=== PATIENT | male | born 1965 | race Caucasian/White ===

== ENCOUNTER 2016-09-17 10:33 | Emergency (ER) | payer MEDICARE ==
[~2016-09-17] VITALS: Ht 193 cm; Wt 86.4 kg
[2016-09-17 10:35] VITALS: BP 103/69; PULSE 68; RESP 18; O2SAT 98
--- NOTE | 2016-09-17 11:08 | ED.REPORT ---
HPI-Abd Pain M 40 and Over Date of Service Sep 17, 2016 ED Provider: Nadeem Wilson MD Pt is a 50 y/o male presenting to the ED c/o dull, aching, RUQ abdominal pain with radiation to the right back onset this morning which woke him up. He has no history of similar symptoms. Pt denies N/V/D, dysuria, fever, chills. His pain is exacerbated by sitting on his right buttock and relieved by sitting on his left buttock. No abdominal surgeries. Nursing Notes Stated Complaint: RIGHT SIDE ABDOMINAL PAIN Chief Complaint: Male Abdominal Pain Nursing Notes Reviewed: Yes ([employer], [employer] not reconciled) Allergies: Coded Allergies: No Known Allergies (Unverified , 09/17/16) General Time Seen by MD: 11:00 Chief Complaint Abdominal pain Hx Obtained From: Patient Arrived By: Walk-in Sudden in Onset?: Yes Onset Occurred: 1 - 4 hours ago Symptom Duration: Since onset Progression since Onset: Unchanged Location: : RUQ Quality: Aching, Burning, Dull Radiation: : Back Severity: Current: Pain level 6 out of 10 Severity: Maximum: Pain level 9 out of 10 Similar Sx Previous: No Past Medical History Past Medical History DJD DDD PTSD Past Surgical History Denies Smoking History Current Some Day Smoker Social History Alcohol Use: Denies alcohol use Drug Use: THC (daily use, also uses Dabs) Ambulatory Status Independent Review of Systems Constitutional: Denies: Chills, Fever Respiratory: Denies: Non-productive cough, Shortness of breath GI: Reports: Abdominal pain, Denies: Diarrhea, Nausea, Vomiting Male: Denies Dysuria Complete sys rev & neg: except as marked. Physical Exam Initial Vital Signs Vital Signs (First) Date Time Temp Pulse Resp B/P Pulse Ox O2 Delivery O2 Flow Rate FiO2 09/17/16 10:35 36.3 68 18 103/69 98 Room Air Initial VS: Reviewed, Vital signs normal Head / Eyes: Atraumatic, Normocephalic, PERRL ENT: Mucous membranes moist, Conjunctiva normal, No scleral icterus Neck: Supple, Full range of motion Extremities: Vascular intact, Neuro intact, No swelling, No tenderness Skin: Warm, Dry, No cyanosis Neurologic: Alert, Oriented, Nonfocal Psychiatric: Mood/affect normal, Behavior normal, Normal thought content General/Constitutional: Awake, Alert, No acute distress, Well appearing, Cooperative, Not toxic appearing Respiratory / Chest: Atraumatic, Breath sounds NL, Breath sounds = bilat, No respiratory distress, No rales, No rhonchi, No wheezing, No retractions, No stridor, No chest tenderness, No chest wall deformity, No crepitus Cardiovascular: Heart rate NL, Regular rhythm, Heart sounds NL, No gallop, No murmurs, No rubs, Cap refill not delayed, Peripheral circulation NL Abdomen: Atraumatic, Soft, No guarding, No rebound, No palpable mass Tenderness/Guarding/Rebound: Positive: Tender RUQ... (Mild), Negative: Holliday's sign positive Back: Full range of motion, Painless range of motion, No CVA tenderness Interpretation & Diagnostics Lab Results Interpretation Result Diagram: 09/17/16 1104 09/17/16 1104 Test 09/17/16 11:04 09/17/16 12:31 White Blood Count 12.1th/mm3 (3.8-10.1) Red Blood Count 4.88mil/mm3 (4.40-5.80) Hemoglobin 15.0g/dL (13.8-17.2) Hematocrit 43.0% (41.0-50.0) Mean Corpuscular Volume 88.1fL (81-100) Mean Corpuscular Hemoglobin 30.7pg (27.0-35.0) Mean Corpuscular Hemoglobin Concent 34.9% (32.0-37.0) Red Cell Distribution Width 13.7% (12.3-15.4) Platelet Count 271bil/L (150-400) Neutrophils (%) (Auto) 68.5% (40-74) Lymphocytes (%) (Auto) 20.8% (14-46) Monocytes (%) (Auto) 8.5% (4-12) Eosinophils (%) (Auto) 1.8% (0-5) Basophils (%) (Auto) 0.2% (0-3) Sodium Level 140mEq/L (134-144) Potassium Level 4.1mEq/L (3.5-5.2) Chloride Level 103mEq/L (97-108) Carbon Dioxide Level 24mmol/L (18-29) Blood Urea Nitrogen 14mg/dL (6-24) Creatinine 0.66mg/dL (0.76-1.27) Estimat Glomerular Filtration Rate 136mL/min (>59) Glucose Level 113mg/dL (60-99) Calcium Level 8.9mg/dL (8.5-10.1) Magnesium Level 2.2mg/dL (1.6-2.6) Total Bilirubin 0.4mg/dL (0.0-1.2) Aspartate Amino Transf (AST/SGOT) 18U/L (0-50) Alanine Aminotransferase (ALT/SGPT) 14U/L (0-44) Alkaline Phosphatase 67U/L (25-150) Total Protein 7.0g/dL (6.4-8.4) Albumin 4.0g/dL (3.4-5.0) Lipase 62U/L (13-60) Hold Maki Top Tube Received (Received) Hold Urine Received (Received) Lab Results Interpretation: CBC mild leukocytosis CMP normal Lipase 67, which is not diagnostic or significantly abnormal US Focused Biliary Negative study Exam Performed by: [facility] Exam Type: Diagnostic Exam Interpreted by: [facility] Indication: Abdominal pain Re-Eval/Medical Decision Med Decision/Clinical Course This is a 50-year-old gentleman who presents complaining of acute onset of terrible right upper quadrant pain that radiates to his back. Which is really tender if he presses over his right upper quadrant. He denies any recent trauma , he has no prior history of hepatobiliary disease. He denies cough or respiratory symptoms. He has no fever or dysuria other symptoms. On exam he has tenderness of right upper quadrant, concerning for the possibility of gallbladder disease, but does not have a definitive Holliday's. Rest of exam is normal. He declined any pain medicines while in the department. His labs are notable for an elevated white count of 12, but his LFTs and lipase were nondiagnostic. A right upper quadrant ultrasound was obtained and was normal. I went to talk with him and updated him about his findings and initial laboratory results, and as a definitive cause has not been established I offered a chest x-ray to further evaluate for right lower lobe process given his leukocytosis-the patient denies any respiratory symptoms, and declines the chest x-ray. I do not think that is unreasonable given the absence of respiratory symptoms. He is comfortable being discharged home simply wanted to make sure he did not have anything dangerous. Initial concern was possibility of cholecystitis, however his workup is negative. He is exam is much improved, he clinically appears well. [facility], and I think that is entirely reasonable. Routine precautions reviewed. Source of Hx: Old records Time of Eval: 13:35 Patient Status: Condition improved, Pain improved Re-Evaluation/Progress Note: Pt rechecked. Discussed negative imaging and lab results. Informed pt of plan for treatment. Pt understands and agrees with plan for treatment. F/U and RTER warnings given. All questions addressed. Time of Eval: 13:40 Re-Evaluation/Progress Note: After I have left the room, the informs me that the patient does not want the x-ray at this time and would prefer to be discharged. Counseled Regarding: Diagnosis, Lab results, Need for follow-up, When/why to return to ED Discharge & Departure Primary Impression: Abdominal pain Abdominal location: right upper quadrant Qualified Code: R10.11 - Right upper quadrant pain Disposition: Home Vital Signs - All Vital Signs Date Time Temp Pulse Resp B/P Pulse Ox O2 Delivery O2 Flow Rate FiO2 09/17/16 13:54 68 18 110/66 99 Room Air 09/17/16 12:59 68 18 110/66 99 Room Air 09/17/16 10:35 36.3 68 18 103/69 98 Room Air )( All Prior VS Reviewed: Yes Condition: Stable Additional Instructions: 1. A dangerous cause of the pain was not identified. 2. Your ultrasound was normal-with no findings of gallbladder or liver problems to explain the pain. 3. Your blood tests were normal, and did not reveal a cause either. Scribe Attestation Portions of this note were transcribed by Erich Dorado. I, Dr. Wilson personally performed the history, physical exam and medical decision-making; I reviewed and confirmed the accuracy of the information in the transcribed note. Signed by Regan Morel, 09/17/16 - 1230 Nadeem Wilson MD Sep 17, 2016 11:08 ERICH DORADO Sep 17, 2016 11:22
[2016-09-17 11:17] LABS: BASOPHILS % (AUTO) 0.2 % (0-3); EOSINOPHILS % (AUTO) 1.8 % (0-5); MONOCYTES % (AUTO) 8.5 % (4-12); Mean Corpuscular Hemoglobin 30.7 pg (27.0-35.0); Mean Corpuscular Volume 88.1 fL (81-100); NEUTROPHILS % (AUTO) 68.5 % (40-74); Platelet Count 271 bil/L (150-400)
[2016-09-17 12:01] LABS: Magnesium 2.2 mg/dL (1.6-2.6)
[2016-09-17 12:59] VITALS: BP 110/66; PULSE 68; RESP 18; O2SAT 99
[2016-09-17 13:54] VITALS: BP 110/66; PULSE 68; RESP 18; O2SAT 99
--- NOTE | 2016-09-17 15:18 | DRSVH ---
PROCEDURE: US ABDOMEN INDICATIONS: RUQ pain ro lester TECHNIQUE: Real-time scanning was performed of the abdominal and retroperitoneal organs, with image documentatio n. COMPARISON: None. FINDINGS: Liver length: 15.68 cm Gallbladder Wall Thickness: 1.80 mm CHD: 2.70 mm CBD: 3.70 mm Spleen length: 8.89 cm Right kidney length: 12.93 cm Left kidney length: 12.50 cm Aorta(Proximal): 2.41 cm Aorta(Mid): 2.00 cm Aorta(Distal): 1.80 cm RCIA: 9.80 mm LCIA: 1.04 cm Liver: Liver is normal in size and homogeneous in echotexture. Gallbladder: Normal gallbladder. Biliary ducts: Intrahepatic bile ducts are non-dilated. Extrahepatic bile duct caliber is normal. Normal is 6-7 mm or less in diameter, or 10 mm or less post-cholecystectomy. Pancreas: Visualized portions of the pancreas are sonographically normal. Spleen: Spleen is normal in size and homogeneous in echotexture. Kidneys: Kidneys are normal in size and echotexture. No hydronephrosis or nephrolithiasis. No ham d masses. Aorta: Visualized aorta is normal in caliber at less than 3 cm. Iliacs: Proximal common iliac arteries are normal in caliber at less than 2.5 cm. IVC: Intrahepatic inferior vena cava is patent. Miscellaneous: No free abdominal fluid. IMPRESSION: No source for right upper quadrant pain identified. Dictated by: Varun Abrams [facility] Interpreted: Veronica Obando MD on 09/17/2016 at 15:18 Transcribed by: MICHELLE on 09/17/2016 at 15:18 Approved by: Veronica Obando MD, PhD on 09/17/2016 at 16:56
== END 2016-09-17 13:54 | disposition home or self-care (01) ==
LOC: SED 10:33
DX: R10.11 Right upper quadrant pain (principal); F17.200 Nicotine dependence, unspecified, uncomplicated